=== PATIENT | female | born 1955 | race African-American/Black ===

== ENCOUNTER 2018-02-22 15:11 | Emergency (ER) | payer SELFPAY ==
[~2018-02-22] VITALS: Ht 162.6 cm; Wt 65.0 kg
[2018-02-22] MEDS ORDERED: BACITRACIN ZINC OINT UDPKT TOP ONE (15:30)
[2018-02-22] MEDS ORDERED: SILVER SULFADIAZINE 1% CREAM 25GM TOP ONE (20:15)
[2018-02-22] MEDS ORDERED: HYDROCODONE/ACETAMINOPHEN 5/325MG TABLET PO ONE (20:15)
[2018-02-22] MEDS ORDERED: TETANUS, DIPHTHERIA, PERTUSSIS VAC/PF 0.5ML (>7YR OLD) IM ONE (21:45)
[2018-02-22 22:59] VITALS: BP 157/97
== END 2018-02-22 23:16 | disposition home or self-care (01) ==
LOC: ER 17:20
DX: S70.01XA Contusion of right hip, initial encounter (principal); S50.01XA Contusion of right elbow, initial encounter; S40.011A Contusion of right shoulder, initial encounter; S20.219A Contusion of unspecified front wall of thorax, initial encounter; F17.200 Nicotine dependence, unspecified, uncomplicated; V29.9XXA Motorcycle rider (driver) (passenger) injured in unspecified traffic accident, initial encounter; Y93.89 Activity, other specified; Y92.89 Other specified places as the place of occurrence of the external cause; Y99.8 Other external cause status
CPT/HCPCS: 29105; 71046; 73030; 73080; 73502; 90471; 90715; 99284; A4565; L3670

== ENCOUNTER 2021-06-07 12:45 | Emergency (ER) | payer SELFPAY ==
[~2021-06-07] VITALS: Ht 170.2 cm; Wt 71.0 kg
[2021-06-07] MEDS ORDERED: ACETAMINOPHEN 325MG TABLET PO STA (16:13)
[2021-06-07] MEDS ORDERED: ONDANSETRON HCL 4MG/2ML INJ IV STA (16:13)
[2021-06-07] MEDS ORDERED: SODIUM CHLORIDE 0.9% 1,000 ML IV ONE (16:15)
[2021-06-07 17:02] LABS: HEMATOCRIT. 51.1 % (36.0-48.0); HEMOGLOBIN. 17.4 g/dL (12.0-16.0); MEAN CORPUSCULAR HEMOGLOBIN 31.7 pg (28.0-32.0); RED BLOOD CELL COUNT 5.49 mill/uL (4.2-5.4); RED CELL DISTRIBUTION WIDTH 13.5 % (11.6-14.6)
[2021-06-07 17:08] LABS: CHLORIDE 93 mEq/L (98-107)
[2021-06-07 17:15] LABS: ETHANOL BLOOD < 10 mg/dL
[2021-06-07 17:33] LABS: PLATELET ESTIMATE NORMAL
[2021-06-07 17:34] LABS: PLATELET 178 x1000/uL (130-400)
[2021-06-07] MEDS ORDERED: POTASSIUM CHLORIDE 20MEQ TABLET SR PO NR (18:00)
[2021-06-07 18:06] LABS: CLARITY URINE CLOUDY (CLEAR); COLOR URINE YELLOW (YELLOW); KETONES URINE TRACE (NEGATIVE); LEUKOCYTE ESTERASE URINE 3+ (NEGATIVE); NITRITE URINE NEGATIVE (NEGATIVE); OCCULT BLOOD URINE TRACE (NEGATIVE); PROTEIN URINE 1+ (NEGATIVE); SPECIFIC GRAVITY URINE 1.017 (1.005-1.030)
[2021-06-07 18:21] LABS: *AMPHETAMINES SCREEN URINE NEGATIVE (NEGATIVE); *BARBITURATES SCREEN URINE NEGATIVE (NEGATIVE); *BENZODIAZEPINES SCREEN URINE NEGATIVE (NEGATIVE); *COCAINE SCREEN URINE NEGATIVE (NEGATIVE); METHADONE URINE SCREEN NEGATIVE (NEGATIVE)
[2021-06-07 18:22] LABS: CANNABINOID URINE SCREEN NEGATIVE (NEGATIVE); OPIATES URINE SCREEN NEGATIVE (NEGATIVE); PHENCYCLIDINE URINE SCREEN NEGATIVE (NEGATIVE)
[2021-06-07] MEDS ORDERED: CEFTRIAXONE 1 G PREMIX 50 ML IV NR (19:15)
[2021-06-07] MEDS ORDERED: CEPH500C2 MT (21:29)
[2021-06-07 21:36] VITALS: BP 124/72
[2021-06-07] MEDS ORDERED: IOHEXOL-300 100 ML BOTTLE ONE (21:36)
== END 2021-06-07 22:04 | disposition home or self-care (01) ==
LOC: ER 12:45
DX: U07.1 COVID-19 (principal); N39.0 Urinary tract infection, site not specified; F17.210 Nicotine dependence, cigarettes, uncomplicated; Z71.6 Tobacco abuse counseling
CPT/HCPCS: 36415; 70450; 71045; 74177; 80053; 80305; 80320; 81003; 84484; 85025; 87086; 87426; 93005; 96361; 96365; 96375; 99285; 99406; J0696; J2405; J7030; Q9967; G0480